=== PATIENT | female | born 1980 | race Native Hawaiian/Other Pacific Islander ===

== ENCOUNTER → 2016-06-18 | Outpatient (CLI) | payer OTHER ==
--- NOTE | 2016-06-18 08:24 | US ---
EXAMINATION TYPE: US OB >= 14 wk fetus DATE OF EXAM: 06/18/2016 7:26 AM COMPARISON: None CLINICAL HISTORY: O36.62X0 large for dates TECHNIQUE: Transabdominal (TA) GESTATIONAL AGE / DATING Physician Established: (15 weeks/5 days) EDC: 12/05/2016 Dates by LMP: unknown Dates by First Scan: no previous Dates by Current Scan: (16 weeks/4 days) EDC: 11/29/2016 SURVEY IUP: Single PLACENTA: Anterior PREVIA: No Previa OTIS: 10.7 cm Normal CERVICAL LENGTH (transabdominal: norm > 3.0cm): 4.6 cm BIOMETRY PRESENTATION: Vertex LIE: Oblique BPD: 3.5 cm 16 weeks / 6 days HC: 11.9 cm 16 weeks / 0 days AC: 11.0 cm 17 weeks / 0 days FL: 2.1 cm 16 weeks / 2 days ESTIMATED WEIGHT IN GRAMS: 159 grams ESTIMATED WEIGHT IN LBS/OZS: 0 lbs. 6 oz. WEIGHT PERCENTAGE BASED ON ESTABLISHED DATES: 90% HC/AC: 1.1 Normal FL/AC: 19 Normal HEART RATE: 153 bpm RHYTHM: Normal IMPRESSION: Single fetus measuring 16 weeks 4 days with an EDC of 12/05/2016
[2016-06-18 09:00] LABS: CH 30.3; CHCM 32.8; HCT 37.8 % (34.0-46.0); HGB 12.4 gm/dL (11.4-16.0); MCH 30.3 pg (25.0-35.0); MCHC 32.7 g/dL (31.0-37.0); MCV 92.5 fL (80.0-100.0); Mean Platelet Volume 6.8; RBC 4.09 m/uL (3.80-5.40); RDW 13.5 % (11.5-15.5); WBC 7.3 k/uL (3.8-10.6)
[2016-06-18 10:28] LABS: Glucose 78 mg/dL (74-99); Non-African American GFR(MDRD) >60 (>60 ml/min/1.73 sqM)
[2016-06-18 10:55] LABS: Hepatitis B Surface Ag Index 0.06
[2016-06-19 07:45] LABS: HIV-1/HIV-2 Ab Screen NONREAC (NON REAC)
== END | disposition home or self-care (01) ==
LOC: RADUSWWP 07:01
PROVIDERS: ATTEND Obstetrics & Gynecology
DX: O36.62X0 Maternal care for excessive fetal growth, second trimester, not applicable or unspecified (principal); O26.812 Pregnancy related exhaustion and fatigue, second trimester; Z3A.16 16 weeks gestation of pregnancy
CPT/HCPCS: 76805; 82105; 82565; 82677; 82947; 84702; 85027; 86336; 86762; 86780; 86850; 86900; 86901; 87340; 87389

== ENCOUNTER → 2016-07-27 | Outpatient (CLI) | payer OTHER ==
--- NOTE | 2016-07-27 08:51 | US ---
EXAMINATION TYPE: US OB anatomy transabd DATE OF EXAM: 07/27/2016 8:28 AM COMPARISON: NONE HISTORY: LGA/anatomy study TECHNIQUE: Transabdominal (TA) EXAM MEASUREMENTS: GESTATIONAL AGE / DATING Physician Established: (21 weeks/2 days) EDC: 12/05/16 Dates by LMP: unknown Dates by First Scan: (22 weeks/2 days) EDC: 11/29/16 Dates by Current Scan for: (21 weeks/2 days) EDC: 12/05/16 SURVEY IUP: Single PLACENTA: Anterior PREVIA: No previa OTIS: 12.9 cm CERVICAL LENGTH (transabdominal: norm > 3.0cm): 5.3 cm BIOMETRY PRESENTATION: Breech BPD: 5.1 cm 21 weeks / 4 days HC: 18.6 cm 21 weeks / 0 days AC: 16.2 cm 21 weeks / 2 days FL: 3.5 cm 21 weeks / 1 days ESTIMATED WEIGHT IN GRAMS: 404 grams ESTIMATED WEIGHT IN LBS/OZS: 0 lbs. 14 oz. WEIGHT PERCENTAGE BASED ON ESTABLISHED DATE:38% HC/AC: 1.1 FL/AC: 22. HEART RATE: 158 bpm RHYTHM: Normal ANATOMY SEEN (within normal limits): * Lateral Vent * Cisterna Magna * Nuchal Fold* Cerebellum Choroid Plexus (bilateral) Midline Falx Cavus Septi Pellucidi Four Chamber Heart Outflow tracts: LVOT/RVOT Stomach Situs Nose / Lips Diaphragm Kidneys (bilateral) Bladder Cord Insert Three Vessel Cord Longitudinal Spine Transverse Spine Arms (bilateral) Legs (bilateral) IMPRESSION: Single viable intrauterine corresponding to an ultrasound age of 21 weeks 2 days with estim ated date of delivery 05 December 2016 by today's exam.
== END | disposition home or self-care (01) ==
LOC: RADUSWWP 07:13
PROVIDERS: ATTEND Obstetrics & Gynecology
DX: O36.62X0 Maternal care for excessive fetal growth, second trimester, not applicable or unspecified (principal); Z3A.21 21 weeks gestation of pregnancy
CPT/HCPCS: 76811

== ENCOUNTER → 2016-09-10 | Outpatient (CLI) | payer OTHER ==
[2016-09-10 11:33] LABS: CH 31.4; CHCM 32.4; HDW 2.33; HGB 11.9 gm/dL (11.4-16.0); MCH 31.2 pg (25.0-35.0); MCHC 32.1 g/dL (31.0-37.0); MCV 97.2 fL (80.0-100.0); Mean Platelet Volume 6.5; RBC 3.81 m/uL (3.80-5.40); RDW 13.8 % (11.5-15.5); WBC 7.5 k/uL (3.8-10.6)
== END | disposition home or self-care (01) ==
LOC: LABWHC1 10:00
PROVIDERS: ATTEND Obstetrics & Gynecology
DX: Z34.82 Encounter for supervision of other normal pregnancy, second trimester (principal); Z3A.00 Weeks of gestation of pregnancy not specified
CPT/HCPCS: 36415; 82950; 85027